=== PATIENT | male | born 1935 | race Two or more races ===

== ENCOUNTER 2020-02-22 06:05 | Outpatient (RCR) | payer MEDICARE, OTHER ==
[2020-02-22] VITALS (8 sets, daily range): BP systolic 149–162; BP diastolic 51–70
[~2020-02-22] VITALS: Ht 166.4 cm; Wt 67.6 kg
[2020-02-27] VITALS (7 sets, daily range): BP systolic 144–161; BP diastolic 53–63
[2020-02-27] MEDS ORDERED: NS 500ML ONE (06:00)
[2020-02-27] MEDS ORDERED: Succinylcholine 20mg/ml 10ml vial ONE (06:00)
[2020-02-27] MEDS ORDERED: Methohexita Syr 100mg/10ml IVP ONE (06:00)
[2020-02-29] VITALS (7 sets, daily range): BP systolic 152–171; BP diastolic 56–70
[2020-02-29] MEDS ORDERED: Succinylcholine 20mg/ml 10ml vial ONE (06:00)
[2020-02-29] MEDS ORDERED: Etomidate 40mg/20ml Inj IV ONE (06:00)
[2020-02-29] MEDS ORDERED: NS 500ML ONE (06:00)
[2020-03-07] VITALS (7 sets, daily range): BP systolic 136–178; BP diastolic 57–70
[2020-03-07] MEDS ORDERED: Succinylcholine 20mg/ml 10ml vial ONE (06:00)
[2020-03-07] MEDS ORDERED: NS 500ML ONE (06:00)
[2020-03-07] MEDS ORDERED: Etomidate 40mg/20ml Inj IV ONE (06:00)
== END 2020-03-09 | disposition home or self-care (01) ==
LOC: ECT 06:05
DX: F33.3 Major depressive disorder, recurrent, severe with psychotic symptoms (principal); Z95.1 Presence of aortocoronary bypass graft; I11.9 Hypertensive heart disease without heart failure; E11.9 Type 2 diabetes mellitus without complications; M54.30 Sciatica, unspecified side; Z86.73 Personal history of transient ischemic attack (TIA), and cerebral infarction without residual deficits
CPT/HCPCS: 90870; J0330; J7040

== ENCOUNTER 2020-03-26 06:08 | Outpatient (RCR) | payer OTHER ==
[2020-03-26] VITALS (7 sets, daily range): BP systolic 153–180; BP diastolic 46–92
[~2020-03-26] VITALS: Ht 30.5 cm; Wt 0.5 kg
[2020-03-26] MEDS ORDERED: Succinylcholine 20mg/ml 10ml vial ONE (06:09)
[2020-03-26] MEDS ORDERED: Etomidate 40mg/20ml Inj IV ONE (06:09)
== END 2020-04-06 | disposition home or self-care (01) ==
LOC: ECT 06:08
DX: F33.3 Major depressive disorder, recurrent, severe with psychotic symptoms (principal)
CPT/HCPCS: 90870; J0330